=== PATIENT | male | born 1985 | race Caucasian/White ===

== ENCOUNTER 2018-02-24 21:05 | Emergency (ER) | payer SELFPAY ==
[2018-02-24] MEDS: oxyCODONE/APAP 5/325 1 TAB TABLET PO (21:46)
== END 2018-02-24 22:17 | disposition home or self-care (01) ==
LOC: ER 22:17
DX: S82.431A Displaced oblique fracture of shaft of right fibula, initial encounter for closed fracture (principal); W01.0XXA Fall on same level from slipping, tripping and stumbling without subsequent striking against object, initial encounter; Y93.01 Activity, walking, marching and hiking; Y92.89 Other specified places as the place of occurrence of the external cause; Y99.8 Other external cause status
CPT/HCPCS: 73610; 99284